=== PATIENT | male | born 1960 | race Caucasian/White ===

== ENCOUNTER → 2025-02-12 08:11 | Outpatient (REF) | payer OTHER, SELFPAY | LOC: RAD 08:11 | PROVIDERS: ATTENDING PHYSICIAN Nuclear Medicine Nuclear Cardiology; FAMILY PHYSICIAN Family Medicine | DX: I77.810 Thoracic aortic ectasia (principal); I49.1 Atrial premature depolarization; E78.1 Pure hyperglyceridemia; Z91.89 Other specified personal risk factors, not elsewhere classified; E78.00 Pure hypercholesterolemia, unspecified; I10 Essential (primary) hypertension | CPT/HCPCS: 71275; 75571; Q9967 ==